=== PATIENT | female | born 1985 | race African-American/Black ===

== ENCOUNTER 2017-09-14 01:49 | Emergency (ER) | payer MEDICAID ==
[~2017-09-14] VITALS: Ht 170.2 cm; Wt 71.0 kg
[~2017-09-14 01:49] MED LIST: ALBU8.5H5 INH; AMOX-291 PO; BELL30LI PO; DIAZ10TA PO; FLUT1DIS IH; HYDR-3237 PO; MESA400T2; ONDA4TAB10 SL; PRED10TA14 PO
[2017-09-14 02:30] VITALS: BP 122/71
[2017-09-14] MEDS ORDERED: HYDROcodone/APAP 5/325 TABLET ONE ×2 (02:58→04:19)
[2017-09-14] MEDS: HYDROcodone/APAP 5/325 TABLET PO PRN ×2 (03:04→04:17)
== END 2017-09-14 04:27 | disposition home or self-care (01) ==
LOC: ED 04:20
DX: S39.012A Strain of muscle, fascia and tendon of lower back, initial encounter (principal); S29.012A Strain of muscle and tendon of back wall of thorax, initial encounter; Y04.8XXA Assault by other bodily force, initial encounter; Y93.89 Activity, other specified; Y99.8 Other external cause status; Y92.89 Other specified places as the place of occurrence of the external cause
CPT/HCPCS: 72072; 72110; 99284

== ENCOUNTER 2017-09-21 00:13 | Emergency (ER) | payer MEDICAID ==
[~2017-09-21] VITALS: Ht 160 cm; Wt 58.5 kg
[2017-09-21] MEDS ORDERED: PROMETHAZINE 25 MG/ML, 1ML ONE (02:12)
[2017-09-21] MEDS ORDERED: MORPHINE SULFATE 4 MG/ML, 1ML ONE ×2 (02:12→04:30)
[2017-09-21] MEDS: MORPHINE SULFATE 4 MG/ML, 1ML IVPush PRN ×2 (02:25→04:31)
[2017-09-21] MEDS ORDERED: PROMETHAZINE 25 MG/ML, 1ML IM ONE (02:30)
[2017-09-21] MEDS ORDERED: SODIUM CHLORIDE 0.9% 1,000ML IVBOLUS ONE (02:30)
[2017-09-21 02:37] LABS: MEAN CORPUSCULAR HEMOGLOBIN 26.8 pg (27.0-34.8); MEAN CORPUSCULAR HGB CONC 32.5 g/dL (32.4-35.8); MEAN CORPUSCULAR VOLUME 82.4 fL (80-100); MEAN PLATELET VOLUME 7.5 fL (7.4-10.4); PLATELET COUNT 286 x10^3/uL (130-400); RED BLOOD COUNT 4.38 x10^6/uL (3.82-5.3); RED CELL DISTRIBUTION WIDTH 14.4 % (9.6-15.2)
[2017-09-21 02:47] LABS: ALBUMIN 3.7 g/dL (3.4-5.0); ANION GAP 7 mmol/L (5-15); CALCIUM 8.4 mg/dL (8.5-10.1); CHLORIDE 110 mmol/L (98-107)
[2017-09-21 02:53] LABS: ALANINE AMINOTRANSFERASE 12 U/L (12-78); ALKALINE PHOSPHATASE 81 U/L (45-117); BILIRUBIN,TOTAL 0.7 mg/dL (0.2-1.0); MD YES; TOTAL PROTEIN 6.8 g/dL (6.4-8.2)
[2017-09-21] MEDS ORDERED: DIPHENHYDRAMINE 50 MG/ML, 1ML ONE (02:53)
[2017-09-21 02:57] LABS: EOS#(MANUAL) 0.23 x10^3/uL (0.0-0.4); EOS% (MANUAL) 4 % (1-7); LYMPH#(MANUAL) 1.97 x10^3/uL (1-3.4); LYMPHS% (MANUAL) 34 % (22-44); MONOS#(MANUAL) 0.41 x10^3/uL (0.3-2.7); MONOS% (MANUAL) 7 % (2-9); SEG#(MANUAL) 3.19 x10^3/uL (1.8-6.8); SEGS% (MANUAL) 55 % (42-75)
[2017-09-21 02:58] LABS: <PLATELET ESTIMATE> ADEQUATE; <PLT MORPHOLOGY> NORMAL PLT MORPH; <RBC MORPHOLOGY> NORMAL
[2017-09-21] MEDS ORDERED: DIPHENHYDRAMINE 50 MG/ML, 1ML IVPush ONE (03:00)
[2017-09-21 04:57] VITALS: BP 123/88
== END 2017-09-21 05:03 | disposition home or self-care (01) ==
LOC: ED 01:34
DX: A09 Infectious gastroenteritis and colitis, unspecified (principal); L02.31 Cutaneous abscess of buttock; R11.2 Nausea with vomiting, unspecified; J45.909 Unspecified asthma, uncomplicated; K50.90 Crohn's disease, unspecified, without complications; Z88.1 Allergy status to other antibiotic agents; Z88.8 Allergy status to other drugs, medicaments and biological substances
CPT/HCPCS: 36415; 80053; 83690; 84703; 85025; 96361; 96372; 96374; 96375; 96376; 99285; J1200; J2550; J7030

== ENCOUNTER 2017-10-07 01:39 | Emergency (ER) | payer MEDICAID ==
[~2017-10-07] VITALS: Ht 160 cm; Wt 62.0 kg
[2017-10-07 01:58] VITALS: BP 117/55
[2017-10-07 02:17] LABS: MICROSCOPIC AUTO
[2017-10-07 02:18] LABS: CULTURE INDICATED? YES
[2017-10-07 02:26] LABS: ALANINE AMINOTRANSFERASE 11 U/L (12-78); ALBUMIN 3.8 g/dL (3.4-5.0); ANION GAP 8 mmol/L (5-15); CALCIUM 8.5 mg/dL (8.5-10.1); CHLORIDE 108 mmol/L (98-107); CREATININE 0.65 mg/dL (0.55-1.02)
[2017-10-07 02:30] LABS: ALKALINE PHOSPHATASE 78 U/L (45-117); BILIRUBIN,TOTAL 0.5 mg/dL (0.2-1.0); TOTAL PROTEIN 7.5 g/dL (6.4-8.2)
[2017-10-07] MEDS ORDERED: SODIUM CHLORIDE FLUSH 10ML SYR IVF ONE (02:30)
[2017-10-07] MEDS ORDERED: MORPHINE SULFATE 4 MG/ML, 1ML IVPush PRN (02:30)
[2017-10-07 02:39] LABS: BASOPHILS # (AUTO) 0.03 x10^3/uL (0-0.1); BASOPHILS % (AUTO) 0 % (0-1); EOSINOPHILS # (AUTO) 0.14 x10^3/uL (0-0.4); EOSINOPHILS % (AUTO) 2 % (1-7); LYMPHOCYTES # (AUTO) 3.84 x10^3/uL (1-3.4); LYMPHOCYTES % (AUTO) 48 % (22-44); MD NO; MEAN CORPUSCULAR HEMOGLOBIN 26.5 pg (27.0-34.8); MEAN CORPUSCULAR HGB CONC 32.1 g/dL (32.4-35.8); MEAN CORPUSCULAR VOLUME 82.6 fL (80-100); MEAN PLATELET VOLUME 7.3 fL (7.4-10.4); MONOCYTES # (AUTO) 0.57 x10^3/uL (0.2-0.8); MONOCYTES % (AUTO) 7 % (2-9); NEUTROPHILS # (AUTO) 3.46 x10^3/uL (1.8-6.8); NEUTROPHILS % (AUTO) 43 % (42-75); PLATELET COUNT 393 x10^3/uL (130-400); RED BLOOD COUNT 4.91 x10^6/uL (3.82-5.3); RED CELL DISTRIBUTION WIDTH 13.7 % (9.6-15.2)
[2017-10-07] MEDS ORDERED: MORPHINE SULFATE 4 MG/ML, 1ML ONE (02:54)
[2017-10-07] MEDS ORDERED: DIPHENHYDRAMINE 50 MG/ML, 1ML ONE (03:11)
[2017-10-07] MEDS ORDERED: DIPHENHYDRAMINE 50 MG/ML, 1ML IM ONE (03:30)
== END 2017-10-07 04:11 | disposition home or self-care (01) ==
LOC: ED 03:30
DX: R10.84 Generalized abdominal pain (principal); R10.2 Pelvic and perineal pain; K50.90 Crohn's disease, unspecified, without complications; G89.29 Other chronic pain; J45.909 Unspecified asthma, uncomplicated
CPT/HCPCS: 36415; 74021; 80053; 81001; 83690; 84703; 85025; 87086; 96372; 96374; 99285; J1200

== ENCOUNTER 2017-12-22 12:16 | Emergency (ER) | payer MEDICAID ==
[~2017-12-22] VITALS: Ht 157.5 cm; Wt 59.2 kg
[2017-12-22 12:28] VITALS: BP 113/77
[2017-12-22] MEDS ORDERED: ACETAMINOPHEN 325 MG TABLET PO ONE (14:00)
== END 2017-12-22 13:58 | disposition home or self-care (01) ==
LOC: ED 13:30
DX: S60.221A Contusion of right hand, initial encounter (principal); Z88.1 Allergy status to other antibiotic agents; Z88.5 Allergy status to narcotic agent; Z88.6 Allergy status to analgesic agent; Y04.0XXA Assault by unarmed brawl or fight, initial encounter; Y93.89 Activity, other specified; Y92.89 Other specified places as the place of occurrence of the external cause; Y99.8 Other external cause status
CPT/HCPCS: 29260; 99284

== ENCOUNTER 2018-06-10 04:12 | Emergency (ER) | payer MEDICAID ==
[~2018-06-10] VITALS: Ht 160 cm; Wt 58.7 kg
[2018-06-10] MEDS ORDERED: METOCLOPRAMIDE 5 MG/ML, 2ML ONE (04:57)
[2018-06-10] MEDS ORDERED: DIPHENHYDRAMINE 50 MG/ML, 1ML ONE (04:58)
[2018-06-10] MEDS ORDERED: KETOROLAC 30 MG/1 ML ONE (04:58)
[2018-06-10] MEDS ORDERED: KETOROLAC 30 MG/1 ML IVPush ONE (05:00)
[2018-06-10] MEDS ORDERED: SODIUM CHLORIDE 0.9% 1,000ML IVBOLUS ONE (05:00)
[2018-06-10] MEDS ORDERED: SODIUM CHLORIDE FLUSH 10ML SYR IVF ONE (05:00)
[2018-06-10] MEDS ORDERED: METOCLOPRAMIDE 5 MG/ML, 2ML IVPush ONE (05:00)
[2018-06-10] MEDS ORDERED: DIPHENHYDRAMINE 50 MG/ML, 1ML IVPush ONE (05:00)
[2018-06-10 05:20] LABS: BASOPHILS # (AUTO) 0.03 x10^3/uL (0-0.1); BASOPHILS % (AUTO) 1 % (0-1); EOSINOPHILS # (AUTO) 0.12 x10^3/uL (0-0.4); EOSINOPHILS % (AUTO) 2 % (1-7); LYMPHOCYTES # (AUTO) 2.99 x10^3/uL (1-3.4); LYMPHOCYTES % (AUTO) 45 % (22-44); MD NO; MEAN CORPUSCULAR HEMOGLOBIN 27.2 pg (27.0-34.8); MEAN CORPUSCULAR HGB CONC 33.4 g/dL (32.4-35.8); MEAN CORPUSCULAR VOLUME 81.5 fL (80-100); MONOCYTES # (AUTO) 0.44 x10^3/uL (0.2-0.8); MONOCYTES % (AUTO) 7 % (2-9); NEUTROPHILS # (AUTO) 3.02 x10^3/uL (1.8-6.8); NEUTROPHILS % (AUTO) 46 % (42-75); PLATELET COUNT 314 x10^3/uL (130-400); RED BLOOD COUNT 4.64 x10^6/uL (3.82-5.3); RED CELL DISTRIBUTION WIDTH 15.6 % (9.6-15.2)
[2018-06-10 05:35] LABS: MICROSCOPIC INDICATED
[2018-06-10 05:36] LABS: ALANINE AMINOTRANSFERASE 14 U/L (12-78); ALBUMIN 3.5 g/dL (3.4-5.0); CHLORIDE 109 mmol/L (98-107); CREATININE 0.67 mg/dL (0.55-1.02)
[2018-06-10 05:41] LABS: ALKALINE PHOSPHATASE 69 U/L (45-117); ANION GAP 10 mmol/L (5-15); BILIRUBIN,TOTAL 0.7 mg/dL (0.2-1.0); CALCIUM 8.5 mg/dL (8.5-10.1); TOTAL PROTEIN 7.1 g/dL (6.4-8.2)
[2018-06-10 05:44] LABS: CULTURE INDICATED? NO
[2018-06-10 06:43] VITALS: BP 99/68
[2018-06-10] MEDS ORDERED: DICYCLOMINE 10 MG/ML, 2ML ONE (06:52)
[2018-06-10] MEDS ORDERED: DICYCLOMINE 10 MG/ML, 2ML IM ONE (07:00)
== END 2018-06-10 08:04 | disposition home or self-care (01) ==
LOC: ED 04:31
DX: R11.2 Nausea with vomiting, unspecified (principal); R19.7 Diarrhea, unspecified; J45.909 Unspecified asthma, uncomplicated
CPT/HCPCS: 36415; 74021; 80053; 81001; 83690; 84703; 85025; 96361; 96372; 96374; 96375; 99284; J0500; J1200; J1885; J2765; J7030

== ENCOUNTER 2019-06-30 10:29 | Emergency (ER) | payer MEDICAID, OTHER ==
[~2019-06-30] VITALS: Ht 160 cm; Wt 62.7 kg
[2019-06-30 10:43] VITALS: BP 133/75
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
[2019-06-30] MEDS ORDERED: KETOROLAC 30 MG/1 ML IM ONE (11:00)
[2019-06-30] MEDS: METHOCARBAMOL 750 MG TABLET PO ONE ×2 (11:00→11:12)
[2019-06-30] MEDS ORDERED: KETOROLAC 30 MG/1 ML ONE (11:08)
[2019-06-30] MEDS ORDERED: METHOCARBAMOL 750 MG TABLET ONE (11:08)
--- NOTE | 2019-06-30 11:21 | NUR ---
PT REFUSED ROBAXIN. EDMD NOTIFIED. PT MEDICATED PER EMAR(TORADOL). PT TOLERATED WELL.
[2019-06-30] MEDS ORDERED: LIDODERM 5% PATCH TD ONE ×2 (11:37→12:00)
--- NOTE | 2019-06-30 11:38 | NUR ---
pt in xray at this time.
--- NOTE | 2019-06-30 12:01 | NUR ---
lido patch placed on upper back at this time.
--- NOTE | 2019-06-30 12:20 | NUR ---
Patient given discharge instructions and they have confirmed that they understand the instructions.
== END 2019-06-30 12:22 | disposition home or self-care (01) ==
LOC: ED 12:00
DX: S16.1XXA Strain of muscle, fascia and tendon at neck level, initial encounter (principal); S29.012A Strain of muscle and tendon of back wall of thorax, initial encounter; F17.200 Nicotine dependence, unspecified, uncomplicated; V89.2XXA Person injured in unspecified motor-vehicle accident, traffic, initial encounter; Y93.89 Activity, other specified; Y92.410 Unspecified street and highway as the place of occurrence of the external cause; Y99.8 Other external cause status
CPT/HCPCS: 71045; 72050; 72072; 96372; 99283; J1885